=== PATIENT | male | born 1980 | race Caucasian/White ===

== ENCOUNTER 2020-11-21 14:51 | Emergency (ER) | payer SELFPAY ==
[2020-11-21] MEDS ORDERED: CEPHALEXIN500 MG PO (18:11)
== END 2020-11-21 18:27 | disposition home or self-care (01) ==
LOC: FER 14:51
DX: S61.012A Laceration without foreign body of left thumb without damage to nail, initial encounter (principal); Z23 Encounter for immunization; W45.8XXA Other foreign body or object entering through skin, initial encounter; Y92.009 Unspecified place in unspecified non-institutional (private) residence as the place of occurrence of the external cause
CPT/HCPCS: 90471; 90715

== ENCOUNTER 2021-02-17 12:48 | Emergency (ER) | payer OTHER ==
[~2021-02-17 12:48] MED LIST: CEPHALEXIN500 MG PO
== END 2021-02-17 14:18 | disposition home or self-care (01) ==
LOC: FER 12:48
DX: S90.31XA Contusion of right foot, initial encounter (principal); W22.8XXA Striking against or struck by other objects, initial encounter; Y92.009 Unspecified place in unspecified non-institutional (private) residence as the place of occurrence of the external cause
CPT/HCPCS: 73630

== ENCOUNTER 2021-03-06 12:44 | Emergency (ER) | payer OTHER ==
[2021-03-06] MEDS ORDERED: MOTRIN600 MG PO (16:18)
== END 2021-03-06 16:27 | disposition home or self-care (01) ==
LOC: FER 12:44
DX: S60.221A Contusion of right hand, initial encounter (principal); F17.210 Nicotine dependence, cigarettes, uncomplicated; K21.9 Gastro-esophageal reflux disease without esophagitis; Z79.899 Other long term (current) drug therapy; W22.09XA Striking against other stationary object, initial encounter; Y92.009 Unspecified place in unspecified non-institutional (private) residence as the place of occurrence of the external cause
CPT/HCPCS: 73130